=== PATIENT | male | born 1985 | race Caucasian/White ===

== ENCOUNTER 2021-01-24 01:19 | Emergency (ER) | payer MEDICAID ==
--- NOTE | 2021-01-24 02:03 | EDM.PDOC ---
ED HPI GENERAL MEDICAL PROBLEM - General Chief Complaint: ENT Problem Stated Complaint: TOOTHACHE Time Seen by Provider: 01/24/21 01:43 Source of Information: Reports: Patient History Limitations: Reports: No Limitations - History of Present Illness INITIAL COMMENTS - FREE TEXT/NARRATIVE: The patient presents with dental pain. This has been going on for about a month. He has pain to the right lower jaw and right upper jaw. He has no fever or chills. He cannot get into a dentist until April. Onset: Gradual Duration: Week(s): (4) Location: Reports: Other (mouth) Quality: Reports: Sharp Severity: Severe Improves with: Reports: None Worsens with: Reports: None Associated Symptoms: Reports: No Other Symptoms Right Lower Tooth/Teeth Pain Score (Numeric/FACES): 6 - Related Data Allergies Allergy/AdvReac Type Severity Reaction Status Date / Time pneumococcal vaccine Allergy Rash Verified 01/24/21 01:39 codeine AdvReac Vomiting Verified 01/24/21 01:39 hydrocodone [From Vicodin] AdvReac Vomiting Verified 01/24/21 01:39 Home Meds: Home Meds Orphenadrine [Norflex] 100 mg PO BID PRN #14 tab 03/17/19 [Rx] Past Medical History - Past Health History Medical/Surgical History: Denies Medical/Surgical History Genitourinary History: Reports: Other (See Below) Other Genitourinary History: R kindey removed Musculoskeletal History: Reports: Back Pain, Chronic Psychiatric History: Reports: Anxiety Hematologic History: Reports: Blood Transfusion(s) Oncologic (Cancer) History: Reports: Other (See Below) Other Oncologic History: Kidney Dermatologic History: Reports: Other (See Below) Other Dermatologic History: hand infection to right hand - Past Surgical History Male Surgical History: Reports: Nephrectomy Endocrine Surgical History: Reports: Other (See Below) Other Endocrine Surgeries/Procedures: thyroid lump- needs biopsy Neurological Surgical History: Reports: Discectomy, Lumbar Spine Musculoskeletal Surgical History: Reports: Other (See Below) Other Musculoskeletal Surgeries/Procedures:: removal of L5, S1 spinal process Social & Family History - Family History Family Medical History: No Pertinent Family History - Tobacco Use Tobacco Use Status *Q: Current Status Unknown - Caffeine Use Caffeine Use: Reports: None ED ROS ENT - Review of Systems Review Of Systems: See Below Constitutional: Reports: No Symptoms HEENT: Reports: Dental Pain Respiratory: Reports: No Symptoms Cardiovascular: Reports: No Symptoms Endocrine: Reports: No Symptoms GI/Abdominal: Reports: No Symptoms : Reports: No Symptoms Musculoskeletal: Reports: No Symptoms ED EXAM, ENT - Physical Exam Exam: See Below Exam Limited By: No Limitations General Appearance: Alert, No Apparent Distress Ears: Normal External Exam Nose: Normal Inspection Mouth/Throat: Other (Erythema, edema and pain upon palpation to the right lower second molar and erythema and pain upon palpation to the right upper second moler.) Course - Vital Signs Last Recorded V/S: Last Vital Signs Temp 97.6 F 01/24/21 01:36 Pulse 56 L 01/24/21 01:36 Resp 18 01/24/21 01:36 BP 129/94 H 01/24/21 01:36 Pulse Ox 100 01/24/21 01:36 - Re-Assessments/Exams Free Text/Narrative Re-Assessment/Exam: 01/24/21 01:59 I did an inferior alveolar nerve block on the right lower jaw. I identified my landmarks and put some topical numbing medication on it then I used 1.8mls of 0.5% bupivicaine. The patient tolerated the procedure and there were no complications. He did get some relief for the pain. I also did a tooth block to the upper tooth. I identified my landmarks and applied some topical numbing medication above the tooth in the gum and I injected 1.8mls of 0.5% bupivicaine. He did get some relief for the pain. Departure - Departure Time of Disposition: 02:05 Disposition: Home, Self-Care 01 Condition: Good Clinical Impression: Dental abscess, Pain, dental - Discharge Information *PRESCRIPTION DRUG MONITORING PROGRAM REVIEWED*: Not Applicable *COPY OF PRESCRIPTION DRUG MONITORING REPORT IN PATIENT KENNETH: Not Applicable Referrals: PCP,None [Primary Care Provider] - Additional Instructions: Take the penicillin VK 4 times per day for 10 days. Take tylenol or your medication for pain. Follow up with your dentist. Please return if you are worse. Sepsis Event Note (ED) - Evaluation Sepsis Screening Result: No Definite Risk - Focused Exam Vital Signs: Vital Signs Temp Pulse Resp BP Pulse Ox 01/24/21 01:36 97.6 F 56 L 18 129/94 H 100
== END 2021-01-24 02:13 | disposition home or self-care (01) ==
LOC: JD.ED 01:19
DX: K04.7 Periapical abscess without sinus (principal); Z88.7 Allergy status to serum and vaccine; Z88.5 Allergy status to narcotic agent
CPT/HCPCS: 64400; 99282-25

== ENCOUNTER 2021-03-22 11:16 | Emergency (ER) | payer OTHER, MEDICAID ==
--- NOTE | 2021-03-22 11:34 | EDM.PDOC ---
ED HPI GENERAL MEDICAL PROBLEM - General Chief Complaint: Gastrointestinal Problem Stated Complaint: VOMITING BLOOD Time Seen by Provider: 03/22/21 11:33 - History of Present Illness INITIAL COMMENTS - FREE TEXT/NARRATIVE: 35-year-old male presents the emergency room with nausea vomiting and vomiting blood. Last evening patient developed frequent pretty significant nausea and vomiting. He vomited 8 or 10 times. When he was about penit[facility]iary through this he had a few episodes where he had some bright red streaking blood in his vomitus. This morning patient is doing much better he is keeping fluids down and he is no longer nauseated. He has not had any diarrhea at this time he has no abdominal pain. He has not had any fevers or chills. - Related Data Allergies Allergy/AdvReac Type Severity Reaction Status Date / Time pneumococcal vaccine Allergy Rash Verified 03/22/21 11:24 codeine AdvReac Vomiting Verified 03/22/21 11:24 hydrocodone [From Vicodin] AdvReac Vomiting Verified 03/22/21 11:24 Home Meds: Home Meds Buprenorphine HCl/Naloxone HCl [Suboxone 4 mg-1 mg Sl Film] 8 mg PO DAILY 03/22/21 [History] DULoxetine [Cymbalta] 60 mg PO DAILY 03/22/21 [History] Ondansetron [Ondansetron ODT] 4 mg PO Q6H PRN #10 tab.rapdis 03/22/21 [Rx] Past Medical History - Past Health History Medical/Surgical History: Denies Medical/Surgical History HEENT History: Reports: Other (See Below) Other HEENT History: tooth removal Gastrointestinal History: Reports: Other (See Below) Other Gastrointestinal History: r kidney removal Genitourinary History: Reports: Other (See Below) Other Genitourinary History: R kindey removed Musculoskeletal History: Reports: Back Pain, Chronic Psychiatric History: Reports: Anxiety Hematologic History: Reports: Blood Transfusion(s) Oncologic (Cancer) History: Reports: Other (See Below) Other Oncologic History: Kidney, renal cell carcinoma Dermatologic History: Reports: Other (See Below) Other Dermatologic History: hand infection to right hand - Past Surgical History Male Surgical History: Reports: Nephrectomy Endocrine Surgical History: Reports: Other (See Below) Other Endocrine Surgeries/Procedures: thyroid lump- needs biopsy Neurological Surgical History: Reports: Discectomy, Lumbar Spine Musculoskeletal Surgical History: Reports: Other (See Below) Other Musculoskeletal Surgeries/Procedures:: removal of L5, S1 spinal process Social & Family History - Family History Family Medical History: No Pertinent Family History - Tobacco Use Tobacco Use Status *Q: Current Every Day Tobacco User Years of Tobacco use: 5 Packs/Tins Daily: 1 - Caffeine Use Caffeine Use: Reports: Energy Drinks - Recreational Drug Use Recreational Drug Use: Yes Recreational Drug Type: Reports: Marijuana/Hashish ED ROS GENERAL - Review of Systems Review Of Systems: See Below Constitutional: Reports: No Symptoms. Denies: Fever, Chills HEENT: Reports: No Symptoms Respiratory: Reports: No Symptoms Cardiovascular: Reports: No Symptoms GI/Abdominal: Reports: Abdominal Pain (Only with the vomiting this last evening), Nausea, Vomiting. Denies: Constipation, Diarrhea : Reports: No Symptoms Musculoskeletal: Reports: No Symptoms Skin: Reports: No Symptoms Neurological: Reports: No Symptoms ED EXAM, GENERAL - Physical Exam Exam: See Below Exam Limited By: No Limitations General Appearance: Alert, No Apparent Distress Head: Atraumatic, Normocephalic Neck: Normal Inspection, Supple, Non-Tender, Full Range of Motion. No: Lymphadenopathy (L), Lymphadenopathy (R) Respiratory/Chest: No Respiratory Distress, Lungs Clear, Normal Breath Sounds Cardiovascular: Regular Rate, Rhythm, No Edema, No Murmur GI/Abdominal: Normal Bowel Sounds, Soft, Tender (He has minimal tenderness just below the lower rib margins anteriorly in the muscles. Otherwise abdominal exam is entirely normal no rigidity rebound or guarding appreciated no palpable discomfort.). No: Non-Tender Back Exam: Normal Inspection. No: CVA Tenderness (R), Muscle Spasm Extremities: Normal Inspection, No Pedal Edema Neurological: Alert, Oriented, Normal Cognition Course - Vital Signs Last Recorded V/S: Last Vital Signs Temp 36.1 C 03/22/21 11:23 Pulse 63 03/22/21 11:23 Resp 18 03/22/21 11:23 BP 137/80 03/22/21 11:23 Pulse Ox 98 03/22/21 11:23 - Re-Assessments/Exams Free Text/Narrative Re-Assessment/Exam: 03/22/21 11:44 I offered the patient to check labs however he is feeling a lot better and would rather avoid this at this time we will discharge with a few Zofran just in case he needs him. From what he is describing I suspect he had Coni-Medley tear. He is back to taking fluids without difficulty and feels much better than he did when he was vomiting. Departure - Departure Time of Disposition: 11:45 Disposition: Home, Self-Care 01 Clinical Impression: Nausea & vomiting, Coni-Medley tear - Discharge Information Referrals: PCP,None [Primary Care Provider] - Forms: ED Department Discharge Additional Instructions: Return to the emergency room with any questions problems or worsening symptoms. Return if you get worse. Clear liquid diet today then slowly advance tomorrow as tolerated. I sent a prescription to [facility] up on [address] up [place] [address] for Zofran this is an antinausea medication you can dissolve these on top of or under your tongue every 6 hours as needed for nausea and vomiting. Sepsis Event Note (ED) - Focused Exam Vital Signs: Vital Signs Temp Pulse Resp BP Pulse Ox 03/22/21 11:23 36.1 C 63 18 137/80 98
== END 2021-03-22 12:00 | disposition home or self-care (01) ==
LOC: JD.ED 11:16
DX: K22.6 Gastro-esophageal laceration-hemorrhage syndrome (principal); Z72.0 Tobacco use; Z88.7 Allergy status to serum and vaccine; Z88.5 Allergy status to narcotic agent
CPT/HCPCS: 99283

== ENCOUNTER 2021-03-26 18:55 | Emergency (ER) | payer OTHER, MEDICAID ==
[2021-03-26] MEDS ORDERED: Ondansetron 4 MG/2 ML SDV IVPUSH ONE (19:49)
[2021-03-26] MEDS ORDERED: Sodium Chloride 0.9% 1,000 ML IV SCH (20:00)
--- NOTE | 2021-03-26 20:24 | CR ---
Abdomen: 2 views of the abdomen were obtained. Comparison: No prior abdominal x-ray. Bowel gas pattern is normal. Small calcifications compatible with phleboliths are seen within the pelvis. Well-corticated bony density is noted off the superior acetabulum of the right hip which appears chronic. No free air is seen. Visualized lung bases are clear. Impression: 1. Findings as described above. 2. Nothing acute is appreciated. Diagnostic code #2
[2021-03-26] MEDS ORDERED: Ketorolac 30 MG/ML SDV IVPUSH ONE (21:19)
--- NOTE | 2021-03-26 21:25 | EDM.PDOC ---
ED HPI GENERAL MEDICAL PROBLEM - General Chief Complaint: Abdominal Pain Stated Complaint: ABDOMINAL PAIN Time Seen by Provider: 03/26/21 20:36 Source of Information: Reports: Patient History Limitations: Reports: No Limitations - History of Present Illness INITIAL COMMENTS - FREE TEXT/NARRATIVE: 35-year-old male presents the emergency department with complaints of left upper and lower quadrant abdominal pain, nausea and vomiting. Patient was seen earlier this month in the emergency department with complaints of nausea and vomiting and was diagnosed with a Coni-Medley tear. At the time of his discharge he states he felt quite well however he states by the next day he began having nausea and vomiting again. He states he will wake in the middle the night and vomit. He states this never really during the day. He states this occurred again last evening after he went to bed. He states he ate supper about 7:00 that night went to bed at about 10 and woke up in the middle the night and vomited profusely. He states he has not eaten anything today as he does not want to have nausea and vomiting. Upon his last discharge he was prescribed Zofran ODT however states he states he has not used this because it does not work for him. He was seen at [facility] today by an physician relations manager, Dr. Hoskins. He has been tested for numerous food allergies. He had mentioned the nausea and vomiting and Dr. Hoskins ordered for him to have an ultrasound as an outpatient. Patient denies any recent fever, chills or diarrhea. He states he only has a bowel movement every couple of days and does have issues with constipation however is not noted to have any bloody stools or dark tarry stools. He does state he has a history of kidney cancer and had his right kidney removed approximately 5 years ago. Left Upper Abdominal Pain Score (Numeric/FACES): 4 - Related Data Allergies Allergy/AdvReac Type Severity Reaction Status Date / Time pneumococcal vaccine Allergy Rash Verified 03/26/21 19:44 codeine AdvReac Vomiting Verified 03/26/21 19:44 hydrocodone [From Vicodin] AdvReac Vomiting Verified 03/26/21 19:44 Home Meds: Home Meds Buprenorphine HCl/Naloxone HCl [Suboxone 4 mg-1 mg Sl Film] 8 mg PO DAILY 03/22/21 [History] DULoxetine [Cymbalta] 60 mg PO DAILY 03/22/21 [History] Ondansetron [Ondansetron ODT] 4 mg PO Q6H PRN #10 tab.rapdis 03/22/21 [Rx] Tamsulosin HCl [Flomax] 0.4 mg PO DAILY #10 cap.er.24h 03/26/21 [Rx] predniSONE [Prednisone] 20 mg PO DAILY #4 tablet 03/26/21 [Rx] Past Medical History - Past Health History Medical/Surgical History: Denies Medical/Surgical History HEENT History: Reports: Other (See Below) Other HEENT History: tooth removal Gastrointestinal History: Reports: Other (See Below) Other Gastrointestinal History: r kidney removal Genitourinary History: Reports: Other (See Below) Other Genitourinary History: R kindey removed Musculoskeletal History: Reports: Back Pain, Chronic Psychiatric History: Reports: Anxiety Hematologic History: Reports: Blood Transfusion(s) Oncologic (Cancer) History: Reports: Other (See Below) Other Oncologic History: Kidney, renal cell carcinoma Dermatologic History: Reports: Other (See Below) Other Dermatologic History: hand infection to right hand - Past Surgical History Male Surgical History: Reports: Nephrectomy, Other (See Below) Other Male Surgeries/Procedures: R Kidney Removed Endocrine Surgical History: Reports: Other (See Below) Other Endocrine Surgeries/Procedures: thyroid lump- needs biopsy Neurological Surgical History: Reports: Discectomy, Lumbar Spine Musculoskeletal Surgical History: Reports: Other (See Below) Other Musculoskeletal Surgeries/Procedures:: removal of L5, S1 spinal process Social & Family History - Family History Family Medical History: No Pertinent Family History - Tobacco Use Tobacco Use Status *Q: Never Tobacco User - Caffeine Use Caffeine Use: Reports: Coffee, Energy Drinks, Tea - Recreational Drug Use Recreational Drug Use: Yes Recreational Drug Type: Reports: Marijuana/Hashish ED ROS GENERAL - Review of Systems Review Of Systems: Comprehensive ROS is negative, except as noted in HPI. ED EXAM, GI/ABD - Physical Exam Exam: See Below Exam Limited By: No Limitations General Appearance: Alert, WD/WN, No Apparent Distress Ears: Normal External Exam, Hearing Grossly Normal Nose: Normal Inspection Throat/Mouth: Normal Inspection, Normal Lips, Normal Voice, No Airway Compromise Head: Atraumatic Neck: Normal Inspection, Supple Respiratory/Chest: No Respiratory Distress, Lungs Clear, Normal Breath Sounds, No Accessory Muscle Use, Chest Non-Tender Cardiovascular: Normal Peripheral Pulses, Regular Rate, Rhythm, No Edema, No Murmur GI/Abdominal Exam: Normal Bowel Sounds, Soft, No Distention, Tender (Left upper and left lower quadrant) (Male) Exam: Deferred Rectal (Males) Exam: Deferred Back Exam: Normal Inspection Extremities: Normal Inspection Neurological: Alert, Oriented, Normal Cognition Psychiatric: Flat Affect Skin Exam: Warm, Dry, Intact, Normal Color, No Rash Lymphatic: No Adenopathy Course - Vital Signs Text/Narrative:: As stated above, patient presents with left upper and lower quadrant abdominal pain and nausea and vomiting that started in the middle of the night last night. Upon exam the patient does not appear in any distress. However he states he does have a significant amount of tenderness to the left upper and lower quadrant with palpation. Assessment is otherwise unremarkable. Lab work is back at the time of my assessment. Hematology reveals a WBC of 6.12, hemoglobin 12.9, hematocrit 37.9, platelet count 239 Chemistry is unremarkable other than a glucose of 103, C-reactive protein less than 0.2, lipase 150 2 view of the abdomen was completed by nursing staff per standing orders. Radiologist impression 2 view of the abdomen: Bowel gas pattern is normal. Small calcifications compatible with phleboliths are seen within the pelvis. Well-corticated bony density is noted off this superior acetabulum of the right hip which appears chronic. No free air is seen. Visualized lung bases are clear. Discussed the results with the patient and he still is complaining of a significant amount of pain. Will obtain a CT of the abdomen and pelvis without contrast as patient despite having good renal function only has 1 kidney. We will also order for the patient received Toradol IV. Last Recorded V/S: Last Vital Signs Temp 97.1 F 03/26/21 19:30 Pulse 79 03/26/21 19:30 Resp 18 03/26/21 19:30 BP 142/88 H 03/26/21 19:30 Pulse Ox 98 03/26/21 19:30 - Orders/Labs/Meds Orders: Active Orders 24 hr Category Date Time Status Abdomen wo Cont [CT] Stat Exams 03/26/21 21:17 Taken Sodium Chloride 0.9% [Normal Saline] 1,000 ml Med 03/26/21 20:00 Active IV ASDIRECTED Tamsulosin [Flomax] Med 03/26/21 22:22 Once 0.4 mg PO ONETIME ONE Medication Orders Sodium Chloride (Normal Saline) 1,000 mls @ 150 mls/hr IV ASDIRECTED OPHELIA Last Admin: 03/26/21 20:23 Dose: 150 mls/hr Documented by: DAREK Tamsulosin HCl (Tamsulosin 0.4 Mg Cap.Er) 0.4 mg PO ONETIME ONE Stop: 03/26/21 22:23 Labs: Laboratory Tests 03/26/21 03/26/21 03/26/21 Range/Units 19:38 19:38 19:38 WBC 6.12 (4.23-9.07) K/mm3 RBC 4.15 L (4.63-6.08) M/mm3 Hgb 12.9 L (13.7-17.5) gm/dl Hct 37.9 L (40.1-51.0) % MCV 91.3 (79.0-92.2) fl MCH 31.1 (25.7-32.2) pg MCHC 34.0 (32.2-35.5) g/dl RDW Std Deviation 40.1 (35.1-43.9) fL Plt Count 239 (163-337) K/mm3 MPV 10.4 (9.4-12.3) fl Neutrophils % (Manual) 57 (40-60) % Band Neutrophils % 0 (0-10) % Lymphocytes % (Manual) 37 (20-40) % Atypical Lymphs % 0 % Monocytes % (Manual) 3 (2-10) % Eosinophils % (Manual) 2 (0.8-7.0) % Basophils % (Manual) 1 (0.2-1.2) Platelet Estimate Adequate RBC Morph Comment Normal Sodium 143 (136-145) mEq/L Potassium 3.7 (3.5-5.1) mEq/L Chloride 105 (98-107) mEq/L Carbon Dioxide 30 (21-32) mEq/L Anion Gap 11.7 (5-15) BUN 12 (7-18) mg/dL Creatinine 1.2 (0.7-1.3) mg/dL Est Cr Clr Drug Dosing 88.72 mL/min Estimated GFR (MDRD) > 60 (>60) mL/min BUN/Creatinine Ratio 10.0 L (14-18) Glucose 103 H (70-99) mg/dL Calcium 8.6 (8.5-10.1) mg/dL Total Bilirubin 0.8 (0.2-1.0) mg/dL AST 21 (15-37) U/L ALT 37 (16-63) U/L Alkaline Phosphatase 76 (46-116) U/L C-Reactive Protein <0.2 (<1.0) mg/dL Total Protein 6.9 (6.4-8.2) g/dl Albumin 4.0 (3.4-5.0) g/dl Globulin 2.9 gm/dL Albumin/Globulin Ratio 1.4 (1-2) Lipase 150 (73-393) U/L Urine Color (Yellow) Urine Appearance (Clear) Urine pH (5.0-8.0) Ur Specific [place] (1.005-1.030) Urine Protein (Negative) Urine Glucose (UA) (Negative) Urine Ketones (Negative) Urine Occult Blood (Negative) Urine Nitrite (Negative) Urine Bilirubin (Negative) Urine Urobilinogen (0.2-1.0) Ur Leukocyte Esterase (Negative) Urine RBC (0-5) /hpf Urine WBC (0-5) /hpf Ur Squamous Epith Cells (0-5) /hpf Amorphous Sediment (NOT SEEN) /hpf Urine Bacteria (FEW) /hpf Urine Mucus (FEW) /hpf 03/26/21 Range/Units 21:24 WBC (4.23-9.07) K/mm3 RBC (4.63-6.08) M/mm3 Hgb (13.7-17.5) gm/dl Hct (40.1-51.0) % MCV (79.0-92.2) fl MCH (25.7-32.2) pg MCHC (32.2-35.5) g/dl RDW Std Deviation (35.1-43.9) fL Plt Count (163-337) K/mm3 MPV (9.4-12.3) fl Neutrophils % (Manual) (40-60) % Band Neutrophils % (0-10) % Lymphocytes % (Manual) (20-40) % Atypical Lymphs % % Monocytes % (Manual) (2-10) % Eosinophils % (Manual) (0.8-7.0) % Basophils % (Manual) (0.2-1.2) Platelet Estimate RBC Morph Comment Sodium (136-145) mEq/L Potassium (3.5-5.1) mEq/L Chloride (98-107) mEq/L Carbon Dioxide (21-32) mEq/L Anion Gap (5-15) BUN (7-18) mg/dL Creatinine (0.7-1.3) mg/dL Est Cr Clr Drug Dosing mL/min Estimated GFR (MDRD) (>60) mL/min BUN/Creatinine Ratio (14-18) Glucose (70-99) mg/dL Calcium (8.5-10.1) mg/dL Total Bilirubin (0.2-1.0) mg/dL AST (15-37) U/L ALT (16-63) U/L Alkaline Phosphatase (46-116) U/L C-Reactive Protein (<1.0) mg/dL Total Protein (6.4-8.2) g/dl Albumin (3.4-5.0) g/dl Globulin gm/dL Albumin/Globulin Ratio (1-2) Lipase (73-393) U/L Urine Color Yellow (Yellow) Urine Appearance Slt cloudy H (Clear) Urine pH 7.5 (5.0-8.0) Ur Specific [place] 1.020 (1.005-1.030) Urine Protein 1+ H (Negative) Urine Glucose (UA) Negative (Negative) Urine Ketones Negative (Negative) Urine Occult Blood Negative (Negative) Urine Nitrite Negative (Negative) Urine Bilirubin Negative (Negative) Urine Urobilinogen 1.0 (0.2-1.0) Ur Leukocyte Esterase Negative (Negative) Urine RBC Not seen (0-5) /hpf Urine WBC Not seen (0-5) /hpf Ur Squamous Epith Cells 0-5 (0-5) /hpf Amorphous Sediment Many H (NOT SEEN) /hpf Urine Bacteria Rare (FEW) /hpf Urine Mucus Moderate H (FEW) /hpf Meds: Medications Generic Name Dose Route Start Last Admin Trade Name Freq PRN Reason Stop Dose Admin Sodium Chloride 1,000 mls @ 150 mls/hr 03/26/21 20:00 03/26/21 20:23 Normal Saline IV 150 mls/hr ASDIRECTED OPHELIA Administration Tamsulosin HCl 0.4 mg 03/26/21 22:22 Tamsulosin 0.4 Mg Cap.Er PO 03/26/21 22:23 ONETIME ONE Discontinued Medications Generic Name Dose Route Start Last Admin Trade Name Damaso PRN Reason Stop Dose Admin Ketorolac Tromethamine 30 mg 03/26/21 21:19 03/26/21 21:32 Ketorolac 30 Mg/Ml Sdv IVPUSH 03/26/21 21:20 30 mg ONETIME ONE Administration Ondansetron HCl 4 mg 03/26/21 19:49 03/26/21 20:23 Ondansetron 4 Mg/2 Ml Sdv IVPUSH 03/26/21 19:50 4 mg ONETIME ONE Administration - Re-Assessments/Exams Free Text/Narrative Re-Assessment/Exam: 03/26/21 22:[address] impression [address] of the abdomen without contrast: 1. The bladder is largely contracted which is probably contributing to its thick-walled appearance. There is mild perivesicular stranding present however, raising suspicion for cystitis, correlate with UA. 2. Right prior nephrectomy. 3. 1.5 mm nonobstructive left renal stone. No ureteral stones or hydronephrosis. 4. Mild central mesenteric stranding at the mesenteric root suspicious for mild mesenteritis, age indeterminate and possibly chronic. Discussed this results with the patient. I have ordered for him to receive Flomax x1 dose for the renal stone. I will send a prescription to his pharmacy for this medication to be taken daily. Upon discharge the patient will be sent home with a urine strainer and instructed to strain all urine. Treatment for mesenteritis is NSAIDs however the patient states he cannot take NSAIDs due to only having 1 kidney. Another treatment option is steroids. I did discuss the case with , and he feels it would be appropriate to treat the patient with low-dose steroid for 5 days. Patient will be given prednisone 20 mg tablet while in the emergency department and then I will send a prescription for another 4 days of prednisone to his pharmacy. Departure - Departure Time of Disposition: 22:53 Disposition: Home, Self-Care 01 Condition: Good Clinical Impression: Kidney stone on left side - Discharge Information Prescriptions: Tamsulosin HCl [Flomax] 0.4 mg PO DAILY #10 cap.er.24h predniSONE [Prednisone] 20 mg PO DAILY #4 tablet Instructions: Kidney Stones, [id number] Referrals: PCP,None [Primary Care Provider] - Forms: ED Department Discharge Additional Instructions: You were seen in the emergency department today with nausea, vomiting and left- sided abdominal pain. Labs were completed which were essentially unremarkable. CT scan was completed which did show a kidney stone on the left side. It also showed mild mesenteritis. You received IV fluids and a dose of Toradol while in the emergency department. You also received a dose of Flomax which is a medication used to dilate the ureter when having kidney stone. You were also given prednisone while in the emergency department to treat inflammation in the mesentery. I have sent prescription to your pharmacy for Flomax. This tab needs to be taken daily until gone or until you are able to find a kidney stone in your urine. I have also sent a prescription for prednisone to your pharmacy. You will need to take 1 tab daily for the next 4 days starting tomorrow. Follow-up with Dr. Leone in about a week's time for reevaluation. Sepsis Event Note (ED) - Focused Exam Vital Signs: Vital Signs Temp Pulse Resp BP Pulse Ox 03/26/21 19:30 97.1 F 79 18 142/88 H 98 - My Orders Last 24 Hours: My Active Orders 03/26/21 20:00 Sodium Chloride 0.9% [Normal Saline] 1,000 ml IV ASDIRECTED 03/26/21 21:17 Abdomen wo Cont [CT] Stat 03/26/21 22:22 Tamsulosin [Flomax] 0.4 mg PO ONETIME ONE - Assessment/Plan Last 24 Hours: My Active Orders 03/26/21 20:00 Sodium Chloride 0.9% [Normal Saline] 1,000 ml IV ASDIRECTED 03/26/21 21:17 Abdomen wo Cont [CT] Stat 03/26/21 22:22 Tamsulosin [Flomax] 0.4 mg PO ONETIME ONE
[2021-03-26] MEDS ORDERED: Tamsulosin 0.4 MG Cap.ER PO ONE (22:22)
[2021-03-26] MEDS ORDERED: predniSONE 20 MG Tab PO ONE (22:53)
--- NOTE | 2021-03-27 10:56 | CT ---
CT abdomen and pelvis Technique: Multiple axial sections were obtained from above the dome of the diaphragm inferiorly through the pubic symphysis. Intravenous and oral contrast were not utilized. Reconstructed sagittal and coronal images were obtained. Comparison: Prior plain film abdominal x-ray performed on the same day (7:55 PM). Findings: Minimal atelectasis is noted posteriorly. Liver contains no focal parenchymal abnormality. Spleen size is normal. Adrenal glands on both sides show no nodule. No pancreatic abnormality is appreciated. Gallbladder is mostly collapsed. No calcifications are seen within the gallbladder to indicate gallstones. Prior right nephrectomy is noted. Surgical clips are seen. Left kidney shows a minimal calcification measuring around 2 mm located within the mid to lower left kidney. Left kidney shows no hydronephrosis. No left-sided ureteral dilatation or ureteral stone is seen. Abdominal aorta shows no aneurysm. No retroperitoneal adenopathy is seen. No pelvic mass or adenopathy is noted. Bladder is slightly thick walled which likely relates to it not being distended. Appendix is not definitely visualized. No free fluid or inflammatory change is appreciated. Bone window settings were reviewed. No acute osseous finding is appreciated. Slight degenerative change is noted. Preliminary exam makes mention of possible central mesenteric stranding which I believe is incidental at this time. Impression: 1. Slight thickening of the bladder wall most likely relating to nondistention. Please correlate with UA. 2. Prior right nephrectomy. 3. Small calcification within the left kidney compatible with nonobstructing stone. No ureteral dilatation or ureteral stone is seen. 4. Nothing acute is otherwise seen on noncontrast CT study of the abdomen and pelvis. Diagnostic code #2 I agree with preliminary report from [facility], finalized on 03/26/21, 11:14 PM CDT, code 1
== END 2021-03-26 23:15 | disposition home or self-care (01) ==
LOC: JD.ED 18:55
DX: N20.0 Calculus of kidney (principal); Z88.7 Allergy status to serum and vaccine; Z88.5 Allergy status to narcotic agent
CPT/HCPCS: 36415; 74019; 74176; 80053; 81001; 83690; 85007; 85027; 86140; 96374; 96375; 99284; A9270; J1885; J2405; J7030; J7512; 74150